=== PATIENT | male | born 1975 | race Caucasian/White ===

== ENCOUNTER 2018-10-07 10:19 | Emergency (ER) | payer OTHER ==
[~2018-10-07] VITALS: Ht 170.2 cm; Wt 84.2 kg
[~2018-10-07 10:19] MED LIST: CHOL4PAC2 PO; ERGO500017 PO; IRON SUPP; LOPE2CAP PO; MERC50TA17 PO; MESA1.2T PO; PHOS250T3 PO; PRED10TA14 PO; PRED1TAB PO
--- NOTE | 2018-10-07 11:47 | NUR ---
[facility] PER MED LIQUID STOOLS PAST SEVERAL DAYS WEAKNESS NOTED OVER THE PAST SEVERAL DAYS
[2018-10-07 11:51] LABS: INTERNATIONAL NORMALIZED RATIO 1.22 (0.93-1.1); PROTHROMBIN TIME 12.7 Seconds (9.6-11.5)
[2018-10-07 11:52] LABS: MEAN CORPUSCULAR HEMOGLOBIN 40.4 pg (27.5-34.5); MEAN CORPUSCULAR VOLUME 118.9 fL (81-97); MEAN PLATELET VOLUME 6.5 fL (7.4-10.4); PLATELET COUNT 344 x10^3/uL (130-400); RED BLOOD COUNT 1.53 x10^6/uL (4.38-5.82); RED CELL DISTRIBUTION WIDTH 19.8 % (9.4-14.8)
[2018-10-07 11:55] LABS: CHLORIDE 99 mmol/L (98-107)
--- NOTE | 2018-10-07 11:59 | NUR ---
[facility] LAB[facility] REPORTED TO ERP
[2018-10-07 12:03] LABS: ALANINE AMINOTRANSFERASE 30 U/L (12-78); ALBUMIN 2.5 g/dL (3.4-5.0); ALKALINE PHOSPHATASE 53 U/L (45-117); ANION GAP 7 mmol/L (5-15); BILIRUBIN,TOTAL 0.9 mg/dL (0.2-1.0); CALCIUM 8.2 mg/dL (8.5-10.1); CREATININE 0.81 mg/dL (0.7-1.3); TOTAL PROTEIN 7.9 g/dL (6.4-8.2)
[2018-10-07 12:22] LABS: MD YES
[2018-10-07 12:24] LABS: BANDS%(MANUAL) 14 % (0-7); EOS#(MANUAL) 0.07 x10^3/uL (0.0-0.4); EOS% (MANUAL) 2 % (1-7); LYMPH#(MANUAL) 0.58 x10^3/uL (1-3.4); LYMPHS% (MANUAL) 16 % (22-44); MONOS#(MANUAL) 0.36 x10^3/uL (0.3-2.7); MONOS% (MANUAL) 10 % (2-9); SEG#(MANUAL) 2.09 x10^3/uL (1.8-6.8); SEGS% (MANUAL) 58 % (42-75)
[2018-10-07 12:25] LABS: <PLATELET ESTIMATE> ADEQUATE; <PLT MORPHOLOGY> NORMAL PLT MORPH; ANISOCYTOSIS 1+; POLYCHROMASIA 1+
[2018-10-07 12:26] LABS: TOXIC GRAN 1+
[2018-10-07 13:34] VITALS: BP 129/97
[2018-10-07 13:53] VITALS: BP 127/79
[2018-10-07 14:48] VITALS: BP 126/71
[2018-10-07 14:55] VITALS: BP 126/71
[2018-10-07 15:07] LABS: HCT (SEDRATE) 18.2 % (39.2-51.8)
[2018-10-07 15:10] VITALS: BP 125/80
[2018-10-07 16:26] VITALS: BP 129/85
--- NOTE | 2018-10-07 16:56 | NUR ---
PT REC 2 UNITS BLOOD NO REACTION NOTED SKIN COLLOR IMPROVED AND PT REPORTS FEELING MUCH BETTER
== END 2018-10-07 17:13 | disposition home or self-care (01) ==
LOC: ED 11:57
DX: K92.2 Gastrointestinal hemorrhage, unspecified (principal)
CPT/HCPCS: 36415; 36430; 80053; 83690; 85025; 85610; 85651; 85730; 86141; 86850; 86900; 86923; 99285; J7512; P9016

== ENCOUNTER 2018-11-25 19:37 | Inpatient (IN) | payer OTHER ==
[~2018-11-25] VITALS: Ht 170.2 cm; Wt 84.1 kg
[2018-11-25] MEDS ORDERED: SODIUM CHLORIDE 0.9% 1,000 ML IV ONE (19:54)
[2018-11-25] MEDS ORDERED: SODIUM CHLORIDE 0.9% 1,000ML IVBOLUS ONE (20:00)
[2018-11-25] MEDS ORDERED: SODIUM CHLORIDE FLUSH 10ML SYR IVF ONE (20:00)
[2018-11-25 20:25] LABS: MEAN CORPUSCULAR HEMOGLOBIN 39.3 pg (27.5-34.5); MEAN CORPUSCULAR VOLUME 119.1 fL (81-97); MEAN PLATELET VOLUME 6.4 fL (7.4-10.4); PLATELET COUNT 349 x10^3/uL (130-400); RED BLOOD COUNT 3.07 x10^6/uL (4.38-5.82); RED CELL DISTRIBUTION WIDTH 15.7 % (9.4-14.8)
[2018-11-25] MEDS ORDERED: TOFA5TAB PO (20:30)
--- NOTE | 2018-11-25 20:37 | NUR ---
PT HERE FOR DIARRHEA X 3 DAYS. PT HAS HX OF IBS AND IS BEING SEEN BY GI MD. PIV STARTED. VSS. FLUIDS RUNNING. CALL LIGHT IN REACH
[2018-11-25 20:39] LABS: ALANINE AMINOTRANSFERASE 18 U/L (12-78); ALBUMIN 2.7 g/dL (3.4-5.0); ANION GAP 14 mmol/L (5-15); CALCIUM 8.5 mg/dL (8.5-10.1); CHLORIDE 85 mmol/L (98-107); CREATININE 1.31 mg/dL (0.7-1.3); MD YES
[2018-11-25 20:41] LABS: ALKALINE PHOSPHATASE 68 U/L (45-117); BILIRUBIN,TOTAL 0.9 mg/dL (0.2-1.0); TOTAL PROTEIN 7.9 g/dL (6.4-8.2)
[2018-11-25 20:55] LABS: BAND#(MANUAL) 3.65 x10^3/uL; BANDS%(MANUAL) 58 % (0-7); LYMPH#(MANUAL) 1.32 x10^3/uL (1-3.4); LYMPHS% (MANUAL) 21 % (22-44); MONOS#(MANUAL) 0.63 x10^3/uL (0.3-2.7); MONOS% (MANUAL) 10 % (2-9); NRBC % (MANUAL) 1 % (0-1); SEG#(MANUAL) 0.69 x10^3/uL (1.8-6.8); SEGS% (MANUAL) 11 % (42-75)
[2018-11-25 20:56] LABS: ANISOCYTOSIS 1+
[2018-11-25 20:57] LABS: <PLATELET ESTIMATE> ADEQUATE; <PLT MORPHOLOGY> NORMAL PLT MORPH
--- NOTE | 2018-11-25 21:22 | NUR ---
PT TO CT.
[2018-11-25] MEDS ORDERED: OMNIPAQUE 350 MG/ML, 100ML BOTTLE ONE (22:11)
--- NOTE | 2018-11-25 22:16 | NUR ---
PT UP TO BATHROOM FOR STOOL SAMPLE
[2018-11-25] MEDS ORDERED: METRONIDAZOLE PMX 500MG/100ML 100 ML ONE (22:26)
[2018-11-25] MEDS ORDERED: CIPROFLOXACIN/PMX 400MG/200ML 100 ML IVPB ONE (22:30)
[2018-11-25] MEDS ORDERED: METRONIDAZOLE PMX 500MG/100ML 100 ML IVPB ONE (22:30)
--- NOTE | 2018-11-25 22:43 | NUR ---
STOOL WALKED TO LAB. ABX RUNNING
[2018-11-25] MEDS ORDERED: ONDANSETRON 2MG/ML, 2ML IVPush PRN (23:00)
[2018-11-25] MEDS ORDERED: CIPROFLOXACIN/PMX 400MG/200ML 200 ML IV SCH (23:00)
[2018-11-25] MEDS ORDERED: SODIUM CHLORIDE FLUSH 10ML SYR IVF PRN (23:00)
[2018-11-25] MEDS ORDERED: morphine SULFATE 10 MG/ML, 1ML IVPush PRN (23:00)
[2018-11-25] MEDS ORDERED: POTASSIUM CHLORIDE 30 MEQ in SODIUM CHLORIDE 0.9% 1,000 ML IV SCH (23:00)
[2018-11-25 23:27] LABS: CLOSTRIDIUM DIFFICILE ANTIGEN NEGATIVE; CLOSTRIDIUM DIFFICILE TOXIN NEGATIVE (Negative)
[2018-11-25 23:47] VITALS: BP 114/81
[2018-11-26] MEDS ORDERED: MAGNESIUM SULFATE PMX 4GM/100M 100 ML IV ONE (01:00)
[2018-11-26 02:07] VITALS: BP 122/82
[2018-11-26] MEDS: METRONIDAZOLE PMX 500MG/100ML 100 ML IV SCH ×3 (06:08→22:15)
[2018-11-26 06:55] VITALS: BP 113/75
[2018-11-26 07:57] LABS: MEAN CORPUSCULAR HEMOGLOBIN 39.4 pg (27.5-34.5); MEAN CORPUSCULAR VOLUME 119.4 fL (81-97); MEAN PLATELET VOLUME 6.5 fL (7.4-10.4); PLATELET COUNT 289 x10^3/uL (130-400); RED CELL DISTRIBUTION WIDTH 16.2 % (9.4-14.8)
[2018-11-26 08:10] LABS: ALBUMIN 2.3 g/dL (3.4-5.0); ANION GAP 11 mmol/L (5-15); CALCIUM 7.4 mg/dL (8.5-10.1); CHLORIDE 93 mmol/L (98-107)
[2018-11-26 08:14] LABS: ALANINE AMINOTRANSFERASE 17 U/L (12-78); ALKALINE PHOSPHATASE 54 U/L (45-117); BILIRUBIN,TOTAL 0.8 mg/dL (0.2-1.0); CREATININE 0.89 mg/dL (0.7-1.3); TOTAL PROTEIN 6.7 g/dL (6.4-8.2)
[2018-11-26 08:23] LABS: MD YES
[2018-11-26 08:27] LABS: LYMPH#(MANUAL) 0.56 x10^3/uL (1-3.4); LYMPHS% (MANUAL) 14 % (22-44); MONOS#(MANUAL) 0.44 x10^3/uL (0.3-2.7); MONOS% (MANUAL) 11 % (2-9)
[2018-11-26 08:28] LABS: BAND#(MANUAL) 1.84 x10^3/uL; BANDS%(MANUAL) 46 % (0-7); SEG#(MANUAL) 1.16 x10^3/uL (1.8-6.8); SEGS% (MANUAL) 29 % (42-75)
[2018-11-26 08:29] LABS: ANISOCYTOSIS 1+
[2018-11-26 08:30] LABS: <PLATELET ESTIMATE> ADEQUATE; <PLT MORPHOLOGY> NORMAL PLT MORPH
[2018-11-26] MEDS: TEMPLATE NON-FORMULARY MED. (Tofacitinib Citrate** (Xeljanz**) 5 MG) HOMEMEDPO SCH ×2 (08:41→21:11)
[2018-11-26] MEDS: ACETAMINOPHEN 325 MG TABLET PO PRN ×2 (08:42→21:07)
[2018-11-26] MEDS: ENOXAPARIN 40 MG/0.4 ML SQ SCH (12:00)
[2018-11-26 12:56] LABS: MICROSCOPIC NOT IND
[2018-11-26 13:04] LABS: CULTURE INDICATED? NO
[2018-11-26 13:12] LABS: ANION GAP 10 mmol/L (5-15); CALCIUM 7.4 mg/dL (8.5-10.1); CHLORIDE 96 mmol/L (98-107)
[2018-11-26 13:13] LABS: CREATININE 1.06 mg/dL (0.7-1.3)
[2018-11-26] MEDS: MEROPENEM 1 GM in SODIUM CHLORIDE 0.9% 100 ML IV SCH ×2 (13:31→21:10)
[2018-11-26 13:37] VITALS: BP 121/79
[2018-11-26 16:58] LABS: CHLORIDE,URINE RANDOM 13 mmol/L; POTASSIUM,URINE RANDOM 38 mmol/L; SODIUM,URINE RANDOM 9 mmol/L
[2018-11-26] MEDS ORDERED: POTASSIUM CHLORIDE 20 MEQ TAB.ER.PRT PO SCH (17:00)
[2018-11-26 17:17] LABS: OSMOLALITY,URINE 309 mOsm/kg (500-850)
[2018-11-26] MEDS: POTASSIUM CHLORIDE 20 MEQ TAB.ER.PRT PO SCH (17:21)
[2018-11-26] MEDS: POTASSIUM CHLORIDE 40 MEQ in SODIUM CHLORIDE 0.9% 1,000 ML IV SCH (17:34)
[2018-11-26 21:02] VITALS: BP 120/79
[2018-11-26] MEDS ORDERED: POTASSIUM CHLORIDE 40 MEQ in SODIUM CHLORIDE 0.9% 1,000 ML IV SCH (23:00)
[2018-11-27 01:14] VITALS: BP 117/81
[2018-11-27 04:29] LABS: MEAN CORPUSCULAR HEMOGLOBIN 39.8 pg (27.5-34.5); MEAN CORPUSCULAR HGB CONC 32.8 g/dL (33.2-36.2); MEAN CORPUSCULAR VOLUME 121.3 fL (81-97); MEAN PLATELET VOLUME 6.7 fL (7.4-10.4); PLATELET COUNT 277 x10^3/uL (130-400)
[2018-11-27 04:36] LABS: ALANINE AMINOTRANSFERASE 20 U/L (12-78); ALBUMIN 2.3 g/dL (3.4-5.0); ANION GAP 9 mmol/L (5-15); CALCIUM 7.3 mg/dL (8.5-10.1); CHLORIDE 102 mmol/L (98-107); CREATININE 0.77 mg/dL (0.7-1.3)
[2018-11-27 04:39] LABS: ALKALINE PHOSPHATASE 50 U/L (45-117); BILIRUBIN,TOTAL 0.4 mg/dL (0.2-1.0); TOTAL PROTEIN 6.5 g/dL (6.4-8.2)
[2018-11-27] MEDS: POTASSIUM CHLORIDE 40 MEQ in SODIUM CHLORIDE 0.9% 1,000 ML IV SCH ×2 (05:13→14:32)
[2018-11-27] MEDS: MEROPENEM 1 GM in SODIUM CHLORIDE 0.9% 100 ML IV SCH ×3 (05:13→21:52)
[2018-11-27 05:53] LABS: MD YES
[2018-11-27 05:56] LABS: MONOS#(MANUAL) 0.77 x10^3/uL (0.3-2.7); MONOS% (MANUAL) 17 % (2-9)
[2018-11-27 05:57] LABS: BAND#(MANUAL) 1.76 x10^3/uL; BANDS%(MANUAL) 39 % (0-7); LYMPH#(MANUAL) 0.77 x10^3/uL (1-3.4); LYMPHS% (MANUAL) 17 % (22-44); SEG#(MANUAL) 1.22 x10^3/uL (1.8-6.8); SEGS% (MANUAL) 27 % (42-75)
[2018-11-27 05:58] LABS: ANISOCYTOSIS 1+; POLYCHROMASIA 1+
[2018-11-27 05:59] LABS: <PLATELET ESTIMATE> ADEQUATE; <PLT MORPHOLOGY> NORMAL PLT MORPH; PMNS WITH VACUOLES 1+; TOXIC GRAN 1+
[2018-11-27] MEDS: METRONIDAZOLE PMX 500MG/100ML 100 ML IV SCH ×2 (06:33→14:29)
[2018-11-27] MEDS ORDERED: MOVIPREP POWDER 1 PREP KIT PO ONE (08:00)
[2018-11-27 08:02] VITALS: BP 111/74
[2018-11-27] MEDS: POTASSIUM CHLORIDE 20 MEQ TAB.ER.PRT PO SCH (08:08)
[2018-11-27] MEDS: FOLIC ACID 1 MG TABLET PO SCH (08:08)
[2018-11-27] MEDS: methylPREDNISolone SOD SUCC 125 MG/2 ML IV SCH (08:09)
[2018-11-27] MEDS: TEMPLATE NON-FORMULARY MED. (Tofacitinib Citrate** (Xeljanz**) 5 MG) HOMEMEDPO SCH ×2 (08:09→21:00)
[2018-11-27] MEDS: ENOXAPARIN 40 MG/0.4 ML SQ SCH (08:15)
[2018-11-27 15:56] VITALS: BP 99/67
[2018-11-27 19:43] VITALS: BP 103/68
[2018-11-28 00:58] VITALS: BP 99/55
[2018-11-28 04:46] LABS: MEAN CORPUSCULAR HEMOGLOBIN 39.5 pg (27.5-34.5); MEAN CORPUSCULAR HGB CONC 32.3 g/dL (33.2-36.2); MEAN CORPUSCULAR VOLUME 122.3 fL (81-97); PLATELET COUNT 288 x10^3/uL (130-400); RED BLOOD COUNT 2.72 x10^6/uL (4.38-5.82); RED CELL DISTRIBUTION WIDTH 16.2 % (9.4-14.8)
[2018-11-28 04:50] LABS: INTERNATIONAL NORMALIZED RATIO 1.37 (0.93-1.1); PROTHROMBIN TIME 14.2 Seconds (9.6-11.5)
[2018-11-28 04:59] LABS: ALBUMIN 2.3 g/dL (3.4-5.0); ANION GAP 9 mmol/L (5-15); CALCIUM 7.5 mg/dL (8.5-10.1); CHLORIDE 109 mmol/L (98-107)
[2018-11-28 05:03] LABS: ALANINE AMINOTRANSFERASE 21 U/L (12-78); ALKALINE PHOSPHATASE 47 U/L (45-117); BILIRUBIN,TOTAL 0.7 mg/dL (0.2-1.0); CREATININE 0.61 mg/dL (0.7-1.3)
[2018-11-28] MEDS: MEROPENEM 1 GM in SODIUM CHLORIDE 0.9% 100 ML IV SCH ×3 (05:25→20:32)
[2018-11-28 05:43] LABS: MD YES
[2018-11-28 05:46] LABS: BAND#(MANUAL) 0.34 x10^3/uL; BANDS%(MANUAL) 10 % (0-7); LYMPH#(MANUAL) 0.37 x10^3/uL (1-3.4); LYMPHS% (MANUAL) 11 % (22-44); MONOS#(MANUAL) 0.54 x10^3/uL (0.3-2.7); MONOS% (MANUAL) 16 % (2-9); REACTIVE LYMPHS # (MANUAL) 0.03 x10^3/uL (0-0); REACTIVE LYMPHS % (MANUAL) 1 % (0-0); SEG#(MANUAL) 2.11 x10^3/uL (1.8-6.8); SEGS% (MANUAL) 62 % (42-75)
[2018-11-28 05:47] LABS: ANISOCYTOSIS 1+
[2018-11-28 05:48] LABS: <PLATELET ESTIMATE> ADEQUATE; <PLT MORPHOLOGY> NORMAL PLT MORPH
[2018-11-28 05:51] LABS: TOXIC GRAN 1+
[2018-11-28 07:01] VITALS: BP 96/61
[2018-11-28] MEDS ORDERED: hydrALAzine 20 MG/ML, 1ML IV PRN (09:30)
[2018-11-28] MEDS ORDERED: EPHEDRINE 50 MG/ML, 1ML IVPush PRN (09:30)
[2018-11-28] MEDS ORDERED: MORPHINE SULFATE 4 MG/ML, 1ML IVPush PRN (09:30)
[2018-11-28] MEDS ORDERED: OXYcodone 5 MG/5 ML ORAL.SOL UDC PO PRN (09:30)
[2018-11-28] MEDS ORDERED: FENTANYL PF 100 MCG/2ML IV PRN (09:30)
[2018-11-28] MEDS ORDERED: HYDROmorphone 2 MG/ML, 1ML IVPush PRN (09:30)
[2018-11-28] MEDS ORDERED: ALBUTEROL SULFATE 2.5 MG/3 ML NPPB PRN (09:30)
[2018-11-28] MEDS ORDERED: MIDAZOLAM 1 MG/ML, 2ML IV PRN (09:30)
[2018-11-28] MEDS ORDERED: DIAZEPAM 5 MG/ML, 2ML IVPush PRN (09:30)
[2018-11-28] MEDS ORDERED: MEPERIDINE/PF 25MG/0.5ML IVPush PRN (09:30)
[2018-11-28] MEDS ORDERED: ONDANSETRON 2MG/ML, 2ML IV PRN (09:30)
[2018-11-28] MEDS ORDERED: PROMETHAZINE 12.5 MG SUPP PR PRN (09:30)
[2018-11-28] MEDS ORDERED: ONDANSETRON ODT 8 MG PO PRN (09:30)
[2018-11-28] MEDS ORDERED: LABETALOL 5MG/ML, 20ML IV PRN (09:30)
[2018-11-28] MEDS ORDERED: PROMETHAZINE 25 MG/ML, 1ML IV PRN (09:30)
[2018-11-28] MEDS ORDERED: HALOPERIDOL 5 MG/ML IV PRN (09:30)
[2018-11-28] MEDS: FOLIC ACID 1 MG TABLET PO SCH (10:14)
[2018-11-28] MEDS: methylPREDNISolone SOD SUCC 125 MG/2 ML IV SCH (10:14)
[2018-11-28] MEDS: TEMPLATE NON-FORMULARY MED. (Tofacitinib Citrate** (Xeljanz**) 5 MG) HOMEMEDPO SCH ×2 (10:15→20:32)
[2018-11-28] MEDS ORDERED: PROPOFOL 10 MG/ML, 50ML ONE (11:18)
[2018-11-28 13:13] VITALS: BP 102/67
[2018-11-28] MEDS: ENOXAPARIN 40 MG/0.4 ML SQ SCH (13:15)
[2018-11-28 19:24] VITALS: BP 106/67
[2018-11-29 03:10] VITALS: BP 108/67
[2018-11-29] MEDS: MEROPENEM 1 GM in SODIUM CHLORIDE 0.9% 100 ML IV SCH ×3 (05:35→21:38)
[2018-11-29 07:00] VITALS: BP 111/75
[2018-11-29] MEDS: FOLIC ACID 1 MG TABLET PO SCH (08:02)
[2018-11-29] MEDS: methylPREDNISolone SOD SUCC 125 MG/2 ML IV SCH (08:02)
[2018-11-29] MEDS: TEMPLATE NON-FORMULARY MED. (Tofacitinib Citrate** (Xeljanz**) 5 MG) HOMEMEDPO SCH ×2 (08:03→21:00)
[2018-11-29 08:48] LABS: ALANINE AMINOTRANSFERASE 20 U/L (12-78); ALBUMIN 2.4 g/dL (3.4-5.0); ANION GAP 8 mmol/L (5-15); CALCIUM 8.4 mg/dL (8.5-10.1); CHLORIDE 109 mmol/L (98-107); CREATININE 0.64 mg/dL (0.7-1.3)
[2018-11-29 08:50] LABS: ALKALINE PHOSPHATASE 46 U/L (45-117); BILIRUBIN,TOTAL 0.2 mg/dL (0.2-1.0); MEAN CORPUSCULAR HGB CONC 32.3 g/dL (33.2-36.2); MEAN CORPUSCULAR VOLUME 120.7 fL (81-97); MEAN PLATELET VOLUME 6.7 fL (7.4-10.4); PLATELET COUNT 359 x10^3/uL (130-400); RED BLOOD COUNT 2.69 x10^6/uL (4.38-5.82); RED CELL DISTRIBUTION WIDTH 16.2 % (9.4-14.8)
[2018-11-29 09:16] LABS: MD YES
[2018-11-29 09:23] LABS: ANISOCYTOSIS 1+; BAND#(MANUAL) 0.24 x10^3/uL; BANDS%(MANUAL) 5 % (0-7); LYMPH#(MANUAL) 0.71 x10^3/uL (1-3.4); LYMPHS% (MANUAL) 15 % (22-44); MONOS#(MANUAL) 0.66 x10^3/uL (0.3-2.7); MONOS% (MANUAL) 14 % (2-9); SEGS% (MANUAL) 66 % (42-75)
[2018-11-29 09:24] LABS: <PLATELET ESTIMATE> ADEQUATE
[2018-11-29 09:25] LABS: <PLT MORPHOLOGY> NORMAL PLT MORPH; POLYCHROMASIA 1+
[2018-11-29] MEDS: ENOXAPARIN 40 MG/0.4 ML SQ SCH (12:36)
[2018-11-29 14:13] VITALS: BP 103/67
[2018-11-29 19:41] VITALS: BP 111/74
[2018-11-30 01:51] VITALS: BP 110/71
[2018-11-30 05:22] LABS: MEAN CORPUSCULAR HEMOGLOBIN 39.7 pg (27.5-34.5); MEAN CORPUSCULAR HGB CONC 32.7 g/dL (33.2-36.2); MEAN CORPUSCULAR VOLUME 121.1 fL (81-97); MEAN PLATELET VOLUME 6.8 fL (7.4-10.4); PLATELET COUNT 340 x10^3/uL (130-400); RED BLOOD COUNT 2.53 x10^6/uL (4.38-5.82); RED CELL DISTRIBUTION WIDTH 16.2 % (9.4-14.8)
[2018-11-30] MEDS: MEROPENEM 1 GM in SODIUM CHLORIDE 0.9% 100 ML IV SCH ×2 (05:22→12:53)
[2018-11-30 05:24] LABS: ALBUMIN 2.2 g/dL (3.4-5.0); ANION GAP 4 mmol/L (5-15); CALCIUM 8.1 mg/dL (8.5-10.1); CHLORIDE 108 mmol/L (98-107)
[2018-11-30 05:28] LABS: ALANINE AMINOTRANSFERASE 21 U/L (12-78); ALKALINE PHOSPHATASE 44 U/L (45-117); BILIRUBIN,TOTAL 0.3 mg/dL (0.2-1.0); CREATININE 0.66 mg/dL (0.7-1.3); TOTAL PROTEIN 6.2 g/dL (6.4-8.2)
[2018-11-30 05:51] LABS: MD YES
[2018-11-30 05:56] LABS: ANISOCYTOSIS 1+; LYMPH#(MANUAL) 0.68 x10^3/uL (1-3.4); LYMPHS% (MANUAL) 12 % (22-44); MONOS#(MANUAL) 0.74 x10^3/uL (0.3-2.7); MONOS% (MANUAL) 13 % (2-9); SEG#(MANUAL) 4.28 x10^3/uL (1.8-6.8); SEGS% (MANUAL) 75 % (42-75)
[2018-11-30 05:57] LABS: NRBC % (MANUAL) 1 % (0-1); POLYCHROMASIA 1+
[2018-11-30 05:58] LABS: <PLATELET ESTIMATE> ADEQUATE; <PLT MORPHOLOGY> NORMAL PLT MORPH
[2018-11-30 06:49] VITALS: BP 122/82
[2018-11-30] MEDS ORDERED: TOFACITINIB CITRATE 10 MG HOMEMEDPO SCH (09:00)
[2018-11-30] MEDS: FOLIC ACID 1 MG TABLET PO SCH (09:32)
[2018-11-30] MEDS: methylPREDNISolone SOD SUCC 125 MG/2 ML IV SCH (09:32)
[2018-11-30] MEDS ORDERED: PRED10TA PO (10:16)
[2018-11-30] MEDS: ENOXAPARIN 40 MG/0.4 ML SQ SCH (11:31)
[2018-11-30 12:24] VITALS: BP 109/75
[2018-11-30] MEDS ORDERED: OMEP-110 PO (14:45)
[2018-11-30] MEDS ORDERED: FOLI-17 PO (14:46)
== END 2018-11-30 15:35 | disposition home or self-care (01) | DRG 872 ==
LOC: ED 21:03 → EDIP 22:36 → 3NW 23:41 → DCLOUNGE 11-30 15:24
PROVIDERS: ADMIT Family Medicine; ATTEND Family Medicine
PROC: 0DB58ZX Excision of Esophagus, Via Natural or Artificial Opening Endoscopic, Diagnostic (ICD-10-PCS; 2018-11-28)
PROC: 0DBB8ZX Excision of Ileum, Via Natural or Artificial Opening Endoscopic, Diagnostic (ICD-10-PCS; 2018-11-28)
PROC: 0DBE8ZX Excision of Large Intestine, Via Natural or Artificial Opening Endoscopic, Diagnostic (ICD-10-PCS; 2018-11-28)
PROC: 0DB98ZX Excision of Duodenum, Via Natural or Artificial Opening Endoscopic, Diagnostic (ICD-10-PCS; principal; 2018-11-28 08:00)
PROC: 0DB78ZX Excision of Stomach, Pylorus, Via Natural or Artificial Opening Endoscopic, Diagnostic (ICD-10-PCS; 2018-11-28 08:00)
DX: A41.9 Sepsis, unspecified organism (principal); A09 Infectious gastroenteritis and colitis, unspecified; E46 Unspecified protein-calorie malnutrition; E87.1 Hypo-osmolality and hyponatremia; E87.2 Acidosis; I50.22 Chronic systolic (congestive) heart failure; K50.90 Crohn's disease, unspecified, without complications; K51.90 Ulcerative colitis, unspecified, without complications; D53.9 Nutritional anemia, unspecified; E86.0 Dehydration; E87.6 Hypokalemia; K44.9 Diaphragmatic hernia without obstruction or gangrene; K58.9 Irritable bowel syndrome, unspecified; K76.0 Fatty (change of) liver, not elsewhere classified; K80.20 Calculus of gallbladder without cholecystitis without obstruction; K90.0 Celiac disease; E66.9 Obesity, unspecified; Z68.29 Body mass index [BMI] 29.0-29.9, adult; Z72.89 Other problems related to lifestyle
CPT/HCPCS: 36415; 74177; 80048; 80053; 81003; 82436; 82607; 82728; 83540; 83550; 83605; 83690; 83735; 83930; 83935; 84100; 84133; 84145; 84295; 84300; 84443; 84630; 85025; 85610; 86645; 87040; 87046; 87324; 87427; 87496; 88305; 89055; 96361; 96365; G0378; J0744; J1650; J2185; J2704; J3480; Q9967; J2930; J3475; J7030; J7512

== ENCOUNTER 2020-02-24 10:54 | Day surgery (SDC) | payer OTHER ==
[~2020-02-24] VITALS: Ht 170.2 cm; Wt 90.9 kg
[~2020-02-24 10:54] MED LIST changes: +BUDE9TAB2 PO; +CALC600T60 PO; +ENOX40SY4 SQ; +ERGO2000 PO; +FERR324T5 PO; +FOLI-17 PO; +OMEP-110 PO; +OXYC5CAP2 PO; +PRED10TA PO; -PRED1TAB PO; +PRED1TAB19 PO; +TOFA5TAB PO
--- NOTE | 2020-02-24 11:09 | NUR ---
Pt to room from lobby, ambulatory with steady gait. Pt provided privacy to change into hospital gown.
--- NOTE | 2020-02-24 11:19 | NUR ---
Pt c/o intermittent epigastric pain x2 weeks. Pt reports diagnosed last year with gallstones. Pt reports pain is now more frequently occuring rated 2/10 with intermittent nausea. Pt states not currently nauseated. Pt able to position self in bed for comfort and provided with warm blanket. Continuous oxygen and BP monitors applied, all safety measures observed.
[2020-02-24 11:59] LABS: BASOPHILS % (AUTO) 0 % (0-1); EOSINOPHILS # (AUTO) 0.43 x10^3/uL (0-0.4); EOSINOPHILS % (AUTO) 5 % (1-7); LYMPHOCYTES # (AUTO) 0.58 x10^3/uL (1-3.4); LYMPHOCYTES % (AUTO) 7 % (22-44); MD NO; MEAN CORPUSCULAR HEMOGLOBIN 33.2 pg (27.5-34.5); MEAN CORPUSCULAR HGB CONC 32.7 g/dL (33.2-36.2); MEAN CORPUSCULAR VOLUME 101.5 fL (81-97); MEAN PLATELET VOLUME 8.1 fL (7.4-10.4); MONOCYTES # (AUTO) 0.76 x10^3/uL (0.2-0.8); MONOCYTES % (AUTO) 9 % (2-9); NEUTROPHILS % (AUTO) 80 % (42-75); PLATELET COUNT 183 x10^3/uL (130-400); RED BLOOD COUNT 4.91 x10^6/uL (4.38-5.82); RED CELL DISTRIBUTION WIDTH 15.3 % (9.4-14.8)
[2020-02-24 12:06] LABS: ALANINE AMINOTRANSFERASE 83 U/L (12-78); ALBUMIN 4.1 g/dL (3.4-5.0); ANION GAP 9 mmol/L (5-15); CALCIUM 9.5 mg/dL (8.5-10.1); CHLORIDE 100 mmol/L (98-107); CREATININE 1.13 mg/dL (0.7-1.3)
[2020-02-24 12:09] VITALS: BP 143/96
[2020-02-24 12:09] LABS: ALKALINE PHOSPHATASE 120 U/L (45-117); BILIRUBIN,TOTAL 1.4 mg/dL (0.2-1.0); TOTAL PROTEIN 8.7 g/dL (6.4-8.2)
--- NOTE | 2020-02-24 12:09 | NUR ---
Pt resting in bed, ambulatory to bathroom and back to bed without difficulty. Urine sample obtained, labeled at bedside, sent to lab. Pt denies other needs at this time.
[2020-02-24 12:31] LABS: MICROSCOPIC INDICATED
--- NOTE | 2020-02-24 13:59 | NUR ---
Report to [employer] HAND[employer].
[2020-02-24] MEDS ORDERED: POTASSIUM CHLORIDE 20 MEQ in D5%-0.45% NACL 1,000 ML IV ONE (14:11)
[2020-02-24] MEDS ORDERED: CHLORHEXIDINE 15 ML UDC ONE (14:29)
[2020-02-24] MEDS ORDERED: CEFOTETAN PMX 2GM/50ML 50 ML IV SCH (14:30)
[2020-02-24] MEDS ORDERED: MORPHINE SULFATE 4 MG/ML, 1ML IVPush PRN (14:30)
[2020-02-24] MEDS ORDERED: ONDANSETRON 2MG/ML, 2ML IVPush PRN ×3 (14:30→16:30)
--- NOTE | 2020-02-24 14:35 | NUR ---
Pt to OR via gurney at this time. Unable to obtain PIV access after RN attempts x2, OR tech advised of this.
[2020-02-24] MEDS ORDERED: EPHEDRINE 50 MG/ML, 1ML ONE (15:23)
[2020-02-24] MEDS ORDERED: ONDANSETRON 2MG/ML, 2ML ONE (15:23)
[2020-02-24] MEDS ORDERED: PROPOFOL 10 MG/ML, 20ML ONE (15:23)
[2020-02-24] MEDS ORDERED: CEFAZOLIN PMX 2GM/50ML IVPB ONE (15:23)
[2020-02-24] MEDS ORDERED: FENTANYL PF 250 MCG/5ML ONE (15:23)
[2020-02-24] MEDS ORDERED: SUGAMMADEX 200 MG/2 ML IVPush ONE (15:23)
[2020-02-24] MEDS ORDERED: ROCURONIUM 10MG/ML,5ML ONE (15:23)
[2020-02-24] MEDS ORDERED: DEXAMETHASONE 4 MG/ML, 1ML ONE (15:23)
[2020-02-24] MEDS ORDERED: SUCCINYLCHOLINE 20 MG/ML, 10ML ONE (15:23)
[2020-02-24] MEDS ORDERED: ACETAMINOPHEN 325 MG TABLET PO PRN (16:00)
[2020-02-24] MEDS ORDERED: MEPERIDINE/PF 25MG/0.5ML IVPush PRN (16:00)
[2020-02-24] MEDS ORDERED: hydrALAzine 20 MG/ML, 1ML IV PRN (16:00)
[2020-02-24] MEDS ORDERED: ALBUTEROL SULFATE 2.5 MG/3 ML NPPB PRN (16:00)
[2020-02-24] MEDS ORDERED: DIAZEPAM 5 MG/ML, 2ML IVPush PRN (16:00)
[2020-02-24] MEDS ORDERED: MIDAZOLAM 1 MG/ML, 2ML IV PRN (16:00)
[2020-02-24] MEDS ORDERED: LABETALOL 5MG/ML, 20ML IV PRN (16:00)
[2020-02-24] MEDS ORDERED: HYDROmorphone 1 MG/ML, 1ML INJ IVPush PRN (16:00)
[2020-02-24] MEDS ORDERED: EPHEDRINE 50 MG/ML, 1ML IVPush PRN (16:00)
[2020-02-24] MEDS ORDERED: OXYcodone 5 MG/5 ML ORAL.SOL UDC PO PRN ×2 (16:00→16:30)
[2020-02-24] MEDS ORDERED: FENTANYL PF 100 MCG/2ML IV PRN (16:00)
[2020-02-24] MEDS ORDERED: PROMETHAZINE 25 MG/ML, 1ML IVPush PRN (16:00)
[2020-02-24] MEDS ORDERED: PROMETHAZINE 12.5 MG SUPP PR PRN (16:00)
[2020-02-24] MEDS ORDERED: DIPHENHYDRAMINE 50 MG/ML, 1ML IVPush PRN ×3 (16:00→16:30)
[2020-02-25] MEDS ORDERED: SULFAMETH./TRIMETHOPRIM DS 800MG/160MG TABLET ONE (20:37)
== END 2020-02-24 21:01 | disposition home or self-care (01) ==
LOC: ED 12:55 → OUT 12:55 → EDSTATUS 13:16 → UNDOADMIN 14:11 → EDIP 14:11 → ED 18:25 → OUT 21:01
PROVIDERS: ATTEND Emergency Medicine
DX: K81.0 Acute cholecystitis (principal); Z20.828 Contact with and (suspected) exposure to other viral communicable diseases; I11.0 Hypertensive heart disease with heart failure; I50.9 Heart failure, unspecified; Z79.899 Other long term (current) drug therapy; Z72.89 Other problems related to lifestyle; Z98.890 Other specified postprocedural states; Z90.49 Acquired absence of other specified parts of digestive tract
CPT/HCPCS: 36415; 47562; 76700; 80053; 81001; 83690; 85025; 87086; 87635; 99285; J0330; J0690; J1100; J2405; J2704; J3010; J7120

== ENCOUNTER 2020-08-16 15:09 | Emergency (ER) | payer OTHER ==
[~2020-08-16] VITALS: Ht 170.2 cm; Wt 88.0 kg
[~2020-08-16 15:09] MED LIST changes: -FOLI-17 PO; +FOLI1TAB32 PO
[2020-08-16] MEDS ORDERED: MULITVITAMIN (15:49)
[2020-08-16] MEDS ORDERED: ONDANSETRON ODT 4 MG ONE (16:24)
--- NOTE | 2020-08-16 16:26 | NUR ---
APPAREL DESIGNER PER MAR.
[2020-08-16] MEDS ORDERED: ONDANSETRON ODT 4 MG PO ONE (16:30)
[2020-08-16 16:32] LABS: BASOPHILS % (AUTO) 1 % (0-1); EOSINOPHILS % (AUTO) 1 % (1-7); LYMPHOCYTES % (AUTO) 6 % (22-44); MEAN CORPUSCULAR HEMOGLOBIN 33.3 pg (27.5-34.5); MEAN CORPUSCULAR HGB CONC 33.9 g/dL (33.2-36.2); MEAN PLATELET VOLUME 7.6 fL (7.4-10.4); MONOCYTES % (AUTO) 4 % (2-9); NEUTROPHILS % (AUTO) 88 % (42-75); PLATELET COUNT 211 x10^3/uL (130-400); RED CELL DISTRIBUTION WIDTH 14.5 % (9.4-14.8)
[2020-08-16 16:42] LABS: ANION GAP 11 mmol/L (5-15); CHLORIDE 105 mmol/L (98-107)
[2020-08-16 16:51] LABS: MD SCAN
[2020-08-16 17:00] VITALS: BP 122/71
--- NOTE | 2020-08-16 17:00 | NUR ---
BREAK RN: VS STABLE. NO ACUTE DISTRESS NOTED. DR COHN IN ROOM. CALL LIGHT IN PLACE. WILL CONTINUE TO MONITOR WHILE PRIMARY RN IS ON BREAK.
== END 2020-08-16 17:21 | disposition home or self-care (01) ==
LOC: ED 17:19
DX: B34.9 Viral infection, unspecified (principal); Z20.822 Contact with and (suspected) exposure to COVID-19; R11.0 Nausea; R51.9 Headache, unspecified
CPT/HCPCS: 36415; 71045; 80048; 85025; 87635; 99284; Q0162

== ENCOUNTER 2020-12-03 16:54 | Emergency (ER) | payer OTHER ==
[~2020-12-03] VITALS: Ht 170.2 cm; Wt 80.0 kg
[~2020-12-03 16:54] MED LIST changes: +MULITVITAMIN
[2020-12-03 17:07] VITALS: BP 140/87
[2020-12-03] MEDS ORDERED: DIPH,PERTUSS(ACELL),TET VAC/PF 0.5 ML IM-VACC ONE ×2 (17:44→18:00)
== END 2020-12-03 19:11 | disposition home or self-care (01) ==
LOC: ED 18:36
DX: S01.111A Laceration without foreign body of right eyelid and periocular area, initial encounter (principal); R00.0 Tachycardia, unspecified; W18.30XA Fall on same level, unspecified, initial encounter; Y93.89 Activity, other specified; Y92.009 Unspecified place in unspecified non-institutional (private) residence as the place of occurrence of the external cause; Y99.8 Other external cause status
CPT/HCPCS: 12011; 90471; 90715; 93005

== ENCOUNTER 2021-03-10 14:23 | Inpatient (IN) | payer OTHER ==
[~2021-03-10] VITALS: Ht 170.2 cm; Wt 86.6 kg
[2021-03-10] MEDS ORDERED: OMNIPAQUE 350 MG/ML, 100ML BOTTLE ONE (15:00)
[2021-03-10 15:37] LABS: BASOPHILS % (AUTO) 0 % (0-1); EOSINOPHILS % (AUTO) 0 % (1-7); LYMPHOCYTES % (AUTO) 3 % (22-44); MEAN CORPUSCULAR HGB CONC 34.2 g/dL (33.2-36.2); MEAN PLATELET VOLUME 7.6 fL (7.4-10.4); MONOCYTES % (AUTO) 2 % (2-9); NEUTROPHILS % (AUTO) 94 % (42-75); PLATELET COUNT 335 x10^3/uL (130-400); RED BLOOD COUNT 4.59 x10^6/uL (4.38-5.82); RED CELL DISTRIBUTION WIDTH 14.3 % (9.4-14.8)
[2021-03-10 15:46] LABS: ALANINE AMINOTRANSFERASE 44 U/L (12-78); ALBUMIN 4.3 g/dL (3.4-5.0); ANION GAP 16 mmol/L (5-15); CALCIUM 9.8 mg/dL (8.5-10.1); CHLORIDE 106 mmol/L (98-107); CREATININE 0.71 mg/dL (0.7-1.3)
[2021-03-10 15:48] LABS: ALKALINE PHOSPHATASE 118 U/L (45-117); BILIRUBIN,TOTAL 0.3 mg/dL (0.2-1.0); TOTAL PROTEIN 8.8 g/dL (6.4-8.2)
--- NOTE | 2021-03-10 19:21 | NUR ---
PT CALLED TO ROOM FROM LOBBY
--- NOTE | 2021-03-10 20:05 | NUR ---
PT PLACED IN GOWN, IV STARTED BY MOTOR BUS DRIVER. CALL TO LAB TO INQUIRE ON UA NOT RESULTED. UA BEING PROCESSED NOW. CALL LIGHT WITHIN REACH. PT UPDATED ON POC. CT WHEN IV COMPLETED.
[2021-03-10 20:20] LABS: MICROSCOPIC INDICATED
--- NOTE | 2021-03-10 21:07 | NUR ---
ALL RESULTS BACK, PT FOR RECHECK. PT REQUESTING PAIN MEDICATION, ERP NOTIFIED.
--- NOTE | 2021-03-10 21:15 | NUR ---
REPORT TO [facility], TRANSFER OF CARE AT THIS TIME.
[2021-03-10] MEDS ORDERED: MORPHINE SULFATE 4 MG/ML, 1ML ONE (21:32)
[2021-03-10] MEDS ORDERED: ONDANSETRON 2MG/ML, 2ML ONE (21:32)
[2021-03-10] MEDS ORDERED: SODIUM CHLORIDE 0.9% 1,000 ML IV ONE (22:00)
[2021-03-10] MEDS ORDERED: ONDANSETRON 2MG/ML, 2ML IVPush ONE (22:00)
[2021-03-10] MEDS ORDERED: SODIUM CHLORIDE 0.9% 1,000ML IVBOLUS ONE (22:00)
[2021-03-10] MEDS ORDERED: MORPHINE SULFATE 4 MG/ML, 1ML IVPush PRN ×2 (22:00)
--- NOTE | 2021-03-10 22:20 | NUR ---
PIV kinked internally and infiltrated, dc'd with tip intact. New PIV placed in R hand, fludis started, meds given, pt toelrated well, nadn.
[2021-03-10 23:09] VITALS: BP 130/79
[2021-03-10] MEDS: ACETAMINOPHEN 325 MG TABLET PO PRN (23:57)
[2021-03-11] MEDS ORDERED: DOCUSATE 100 MG CAPSULE PO PRN
[2021-03-11] MEDS ORDERED: MELATONIN 5 MG TABLET PO PRN
[2021-03-11] MEDS: morphine SULFATE 10 MG/ML, 1ML IVPush PRN ×6 (04:15→22:10)
[2021-03-11 05:27] LABS: BASOPHILS % (AUTO) 1 % (0-1); EOSINOPHILS % (AUTO) 0 % (1-7); LYMPHOCYTES % (AUTO) 7 % (22-44); MEAN CORPUSCULAR HEMOGLOBIN 34.4 pg (27.5-34.5); MEAN CORPUSCULAR HGB CONC 34.6 g/dL (33.2-36.2); MONOCYTES % (AUTO) 14 % (2-9); NEUTROPHILS % (AUTO) 78 % (42-75); PLATELET COUNT 320 x10^3/uL (130-400); RED CELL DISTRIBUTION WIDTH 14.5 % (9.4-14.8)
[2021-03-11 05:33] LABS: CHLORIDE 106 mmol/L (98-107)
[2021-03-11 05:39] LABS: ANION GAP 7 mmol/L (5-15); CREATININE 0.72 mg/dL (0.7-1.3)
[2021-03-11 07:20] VITALS: BP 125/76
[2021-03-11] MEDS: LACTATED RINGERS 1,000 ML IV SCH ×2 (11:38→19:19)
[2021-03-11 19:14] VITALS: BP 149/91
[2021-03-12 01:19] VITALS: BP 138/90
[2021-03-12] MEDS: morphine SULFATE 10 MG/ML, 1ML IVPush PRN ×3 (01:24→09:52)
[2021-03-12] MEDS: LACTATED RINGERS 1,000 ML IV SCH (01:26)
[2021-03-12 05:53] LABS: BASOPHILS % (AUTO) 1 % (0-1); EOSINOPHILS % (AUTO) 1 % (1-7); LYMPHOCYTES % (AUTO) 7 % (22-44); MEAN CORPUSCULAR HEMOGLOBIN 33.9 pg (27.5-34.5); MEAN CORPUSCULAR HGB CONC 33.9 g/dL (33.2-36.2); MEAN PLATELET VOLUME 7.9 fL (7.4-10.4); MONOCYTES % (AUTO) 11 % (2-9); NEUTROPHILS % (AUTO) 81 % (42-75); PLATELET COUNT 320 x10^3/uL (130-400); RED BLOOD COUNT 4.75 x10^6/uL (4.38-5.82); RED CELL DISTRIBUTION WIDTH 14.4 % (9.4-14.8)
[2021-03-12 06:00] LABS: ALANINE AMINOTRANSFERASE 28 U/L (12-78); ALBUMIN 3.4 g/dL (3.4-5.0); ANION GAP 7 mmol/L (5-15); CALCIUM 8.7 mg/dL (8.5-10.1); CHLORIDE 106 mmol/L (98-107); CREATININE 0.84 mg/dL (0.7-1.3)
[2021-03-12 06:02] LABS: ALKALINE PHOSPHATASE 102 U/L (45-117); BILIRUBIN,TOTAL 0.7 mg/dL (0.2-1.0); TOTAL PROTEIN 7.4 g/dL (6.4-8.2)
[2021-03-12 08:15] VITALS: BP 134/91
[2021-03-12] MEDS: FAMOTIDINE 20 MG TABLET PO SCH ×2 (09:52→21:34)
[2021-03-12] MEDS ORDERED: OXYcodone IR 5MG TABLET PO PRN (10:00)
[2021-03-12] MEDS ORDERED: LACTATED RINGERS 1,000 ML IV SCH (11:00)
[2021-03-12] MEDS: ACETAMINOPHEN 325 MG TABLET PO PRN ×2 (12:21→16:18)
[2021-03-12 14:00] VITALS: BP 141/95
[2021-03-12] MEDS ORDERED: morphine SULFATE 10 MG/ML, 1ML IVPush PRN (18:30)
[2021-03-12 19:14] VITALS: BP 142/99
[2021-03-13 01:26] VITALS: BP 137/92
[2021-03-13] MEDS ORDERED: ONDANSETRON 2MG/ML, 2ML ONE (01:49)
[2021-03-13] MEDS: ONDANSETRON 2MG/ML, 2ML IVPush PRN ×2 (01:51→06:04)
[2021-03-13 05:08] LABS: ALANINE AMINOTRANSFERASE 24 U/L (12-78); ALBUMIN 3.3 g/dL (3.4-5.0); ANION GAP 9 mmol/L (5-15); BASOPHILS % (AUTO) 1 % (0-1); CALCIUM 8.8 mg/dL (8.5-10.1); CHLORIDE 103 mmol/L (98-107); CREATININE 0.73 mg/dL (0.7-1.3); EOSINOPHILS % (AUTO) 0 % (1-7); LYMPHOCYTES % (AUTO) 6 % (22-44); MEAN CORPUSCULAR HEMOGLOBIN 33.3 pg (27.5-34.5); MEAN CORPUSCULAR HGB CONC 33.3 g/dL (33.2-36.2); MEAN PLATELET VOLUME 7.7 fL (7.4-10.4); MONOCYTES % (AUTO) 14 % (2-9); NEUTROPHILS % (AUTO) 79 % (42-75); PLATELET COUNT 306 x10^3/uL (130-400); RED BLOOD COUNT 5.14 x10^6/uL (4.38-5.82); RED CELL DISTRIBUTION WIDTH 14.3 % (9.4-14.8)
[2021-03-13 05:10] LABS: ALKALINE PHOSPHATASE 94 U/L (45-117); BILIRUBIN,TOTAL 0.9 mg/dL (0.2-1.0); TOTAL PROTEIN 7.6 g/dL (6.4-8.2)
[2021-03-13] MEDS ORDERED: OXYcodone IR 5MG TABLET PO PRN (08:00)
[2021-03-13 08:13] VITALS: BP 130/88
[2021-03-13] MEDS: FAMOTIDINE 20 MG TABLET PO SCH ×2 (09:00→21:00)
[2021-03-13] MEDS: LACTOBACILLUS CHEW TABLET PO SCH ×3 (09:00→20:47)
[2021-03-13] MEDS ORDERED: morphine SULFATE 10 MG/ML, 1ML IVPush PRN (09:30)
[2021-03-13] MEDS ORDERED: CHLORHEXIDINE 15 ML UDC ONE (10:02)
[2021-03-13] MEDS ORDERED: MIDAZOLAM 1 MG/ML, 2ML ONE (10:17)
[2021-03-13] MEDS ORDERED: BUPIVACAINE/PF 0.5% ONE (10:27)
[2021-03-13] MEDS ORDERED: ACETAMINOPHEN 325 MG TABLET PO PRN (10:30)
[2021-03-13] MEDS ORDERED: PROMETHAZINE 25 MG/ML, 1ML IVPush PRN (10:30)
[2021-03-13] MEDS ORDERED: HYDROmorphone 1 MG/ML, 1ML INJ IVPush PRN (10:30)
[2021-03-13] MEDS ORDERED: ONDANSETRON 2MG/ML, 2ML IVPush PRN (10:30)
[2021-03-13] MEDS ORDERED: MEPERIDINE/PF 25MG/0.5ML IVPush PRN (10:30)
[2021-03-13] MEDS ORDERED: CHLORHEXIDINE 15 ML UDC PO ONE (10:30)
[2021-03-13] MEDS ORDERED: HYDROcodone/APAP 7.5-325MG/15ML UDC PO PRN (10:30)
[2021-03-13] MEDS ORDERED: OXYcodone 5 MG/5 ML ORAL.SOL UDC PO PRN (10:30)
[2021-03-13] MEDS ORDERED: LACTATED RINGERS 1,000 ML IV SCH (11:00)
[2021-03-13] MEDS: LACTATED RINGERS 1,000 ML IV SCH (11:00)
[2021-03-13] MEDS ORDERED: FENTANYL PF 100 MCG/2ML ONE ×2 (11:48→12:05)
[2021-03-13] MEDS: FENTANYL PF 100 MCG/2ML IV PRN ×2 (12:10→12:15)
[2021-03-13 14:00] VITALS: BP 144/86
[2021-03-13 19:56] VITALS: BP 130/83
[2021-03-13] MEDS: ACETAMINOPHEN 325 MG TABLET PO PRN (20:47)
[2021-03-14 01:22] VITALS: BP 139/83
[2021-03-14] MEDS: ACETAMINOPHEN 325 MG TABLET PO PRN ×2 (03:16→10:11)
[2021-03-14 04:30] VITALS: BP 122/75
[2021-03-14] MEDS: LACTATED RINGERS 1,000 ML IV SCH (05:45)
[2021-03-14 07:52] VITALS: BP 134/75
[2021-03-14] MEDS: ENOXAPARIN 40 MG/0.4 ML SQ SCH ×2 (08:00→10:02)
[2021-03-14] MEDS: FAMOTIDINE 20 MG TABLET PO SCH ×2 (09:00→10:02)
[2021-03-14] MEDS: LACTOBACILLUS CHEW TABLET PO SCH (10:02)
[2021-03-14] MEDS ORDERED: ACID1TAB7 PO (10:58)
[2021-03-14] MEDS ORDERED: ACET325T26 PO (10:59)
[2021-03-14 12:38] VITALS: BP 127/83
== END 2021-03-14 13:20 | disposition home or self-care (01) | DRG 354 ==
LOC: ED 15:29 → EDIP 21:51 → 4NE 23:06
PROVIDERS: ADMIT Student in an Organized Health Care Education/Training Program; ATTEND Internal Medicine
PROC: 0WQF4ZZ Repair Abdominal Wall, Percutaneous Endoscopic Approach (ICD-10-PCS; principal; 2021-03-13 11:00)
DX: K43.5 Parastomal hernia without obstruction or gangrene (principal); K43.6 Other and unspecified ventral hernia with obstruction, without gangrene; K50.90 Crohn's disease, unspecified, without complications; Q61.3 Polycystic kidney, unspecified; K94.13 Enterostomy malfunction; D72.829 Elevated white blood cell count, unspecified; Z20.822 Contact with and (suspected) exposure to COVID-19; Y83.9 Surgical procedure, unspecified as the cause of abnormal reaction of the patient, or of later complication, without mention of misadventure at the time of the procedure; Y82.9 Unspecified medical devices associated with adverse incidents; Z90.49 Acquired absence of other specified parts of digestive tract; Z93.3 Colostomy status; Z82.49 Family history of ischemic heart disease and other diseases of the circulatory system
CPT/HCPCS: 36415; 74018; 96361; 96374; 99285; S0020; 74177; 80048; 80053; 81001; 83690; 85025; 87635; 93005; G0378; J1650; J2250; J2405; J3010; Q9967; J2270; J7030; J7120